=== PATIENT | female | born 1995 | race Caucasian/White ===

== ENCOUNTER 2018-04-22 01:10 | Outpatient (CLI) | payer OTHER ==
[2018-04-22] MEDS: AL HYDROX/MG HYDROX/SIMETH 30 ML CUP PO (02:44)
== END 2018-04-22 03:50 | disposition home or self-care (01) ==
LOC: OBT 01:10 → L-D 01:10 → OBT 03:50
DX: O62.9 Abnormality of forces of labor, unspecified (principal); Z3A.40 40 weeks gestation of pregnancy
CPT/HCPCS: 76815; 76818